=== PATIENT | male | born 1995 | race Two or more races ===

== ENCOUNTER 2024-03-19 12:09 | Emergency (ER) | payer MEDICAID ==
[~2024-03-19] VITALS: Ht 162.6 cm; Wt 75.0 kg
[2024-03-19 12:20] VITALS: TEMP 98.2
[2024-03-19] MEDS: LORazepam 1 MG TABLET PO ONE (13:05)
[2024-03-19 13:57] LABS: TROPONIN I-HIGH SENSITIVITY 4 ng/L (<76)
[2024-03-19] MEDS ORDERED: HYDR-4527 PO (14:43)
[2024-03-19 15:00] VITALS: BP 119/66; PULSE 68; RESP 16
== END 2024-03-19 15:40 | disposition home or self-care (01) ==
LOC: EMS 12:12
DX: T16.1XXA Foreign body in right ear, initial encounter (principal); F41.9 Anxiety disorder, unspecified; R07.89 Other chest pain; Z90.49 Acquired absence of other specified parts of digestive tract; W44.F4XA Insect entering into or through a natural orifice, initial encounter; Y93.89 Activity, other specified; Y92.89 Other specified places as the place of occurrence of the external cause; Y99.8 Other external cause status
CPT/HCPCS: 84484; 99284